=== PATIENT | female | born 1990 ===

== ENCOUNTER 2017-11-27 21:20 | Emergency (ER) | payer SELFPAY ==
[2017-11-27 21:48] VITALS: BP 116/81; PULSE 89; RESP 19; TEMP 97.8; O2SAT 100
--- NOTE | 2017-11-27 22:49 | ED PDOC ---
HPI: Abdomen Time Seen by Provider: 11/27/17 21:51 Chief Complaint (Nursing): Abdominal Pain Chief Complaint (Provider): lower abdominal pain History Per: Patient History/Exam Limitations: no limitations Onset/Duration Of Symptoms: Days (1 week), Gradual, Persistent Location Of Pain/Discomfort: Suprapubic Quality Of Discomfort: Dull, Aching Associated Symptoms: Urinary Symptoms (feels like she always has to go). denies : Fever, Chills, Nausea, Vomiting, Diarrhea, Loss Of Appetite, Back Pain Exacerbating Factors: None Alleviating Factors: None Additional Complaint(s): Has not taken anything for pain Last menses 2 months ago. Normally irregular No vaginal discharge or bleeding. PMD Dr Baum Past Medical History Reviewed: Historical Data, Nursing Documentation, Vital Signs Vital Signs: Last Vital Signs Temp 97.8 F 11/27/17 21:45 Pulse 89 11/28/17 02:39 Resp 19 11/28/17 02:39 BP 116/81 11/28/17 02:39 Pulse Ox 100 11/28/17 06:39 - Medical History PMH: No Chronic Diseases - Surgical History Surgical History: No Surg Hx - Family History Family History: States: No Known Family Hx - Social History Current smoker - smoking cessation education provided: No - Home Medications Home Medications: Ambulatory Orders Medication Instructions Recorded Naproxen [Naprosyn] 500 mg PO Q12 #14 tab 11/28/17 Nitrofurantoin Macrocrystals 100 mg PO BID #14 cap 11/28/17 [Macrobid] - Allergies Allergies/Adverse Reactions: Allergies Allergy/AdvReac Type Severity Reaction Status Date / Time blue cheese Allergy RASH Uncoded 11/27/17 21:45 cream cheese Allergy ANAPHYLAXIS Uncoded 11/27/17 21:45 pesto Allergy NAUSEA Uncoded 11/27/17 21:45 Review of Systems ROS Statement: Except As Marked, All Systems Reviewed And Found Negative (and as per HPI) Gastrointestinal: Positive for: Abdominal Pain Physical Exam - Reviewed Nursing Documentation Reviewed: Yes Vital Signs Reviewed: Yes - Physical Exam Appears: Positive for: Non-toxic, No Acute Distress Head Exam: Positive for: ATRAUMATIC, NORMOCEPHALIC Skin: Positive for: Warm, Dry Eye Exam: Positive for: EOMI, PERRL ENT: Negative for: Pharyngeal Erythema, Tonsillar Exudate Neck: Positive for: Painless ROM, Supple Cardiovascular/Chest: Positive for: Regular Rate, Rhythm, Chest Non Tender. Negative for: Murmur Respiratory: Positive for: Normal Breath Sounds. Negative for: Wheezing Gastrointestinal/Abdominal: Positive for: Soft, Tenderness (mild suprapubic ttp) . Negative for: Mass, Distended, Guarding, Rebound Back: Positive for: Normal Inspection. Negative for: Muscle Spasm Extremity: Positive for: Normal ROM. Negative for: Deformity Lymphatic: Negative for: Adenopathy Neurologic/Psych: Positive for: Alert. Negative for: Motor/Sensory Deficits - ECG O2 Sat by Pulse Oximetry: 100 Disposition - Clinical Impression Clinical Impression: Pelvic pain - Disposition Referrals: [facility] [Outside] [facility] [Outside] Disposition: Transfer of Care Disposition Time: 00:00 Condition: STABLE Prescriptions: Naproxen [Naprosyn] 500 mg PO Q12 #14 tab Nitrofurantoin Macrocrystals [Macrobid] 100 mg PO BID #14 cap Patient Signed Over To: Jamey Solis Handoff Comments: Pending US and ER disposition
[2017-11-27 23:45] LABS: SQUAMOUS EPITHIAL 1 /hpf (0-5); URINE BILIRUBIN NEGATIVE (NEGATIVE); URINE BLOOD NEGATIVE (NEGATIVE); URINE CLARITY SLIGHTY-CLOUDY (Clear); URINE COLOR YELLOW (YELLOW); URINE GLUCOSE (UA) NEG (Normal); URINE LEUKOCYTE ESTERASE TRACE Leu/uL (Negative); URINE PROTEIN NEGATIVE (NEGATIVE); URINE UROBILINOGEN 0.2-1.0 mg/dL (0.2-1.0)
--- NOTE | 2017-11-28 00:15 | ED PDOC ---
- ECG O2 Sat by Pulse Oximetry: 100 (RA) Pulse Ox Interpretation: Normal Medical Decision Making Medical Decision Making: Time: 1215 -- Patient endorsed to me by Dr. Martines, pending ultrasound and re- evaluation. Time: 014 US RESULTS FINDINGS: Uterus/cervix: No myometrial mass. Endometrium: 1.4 cm in thickness. Probable nabothian cysts. Right ovary: No mass. Small follicles. Normal flow. Left ovary: 1.3 x 1.2 x 1.1 cm anechoic lesion. Small follicles. Normal flow. Free fluid: Trace free fluid within pelvis. IMPRESSION: 1. LEFT ovarian dominant follicle/follicular cyst. 2. Incidental/non-acute findings are described above. Thank you for allowing us to participate in the care of your patient. Dictated and Authenticated by: Tristen Emerson MD 11/28/2017 1:40 AM Eastern Time ([place] & [place]) Time: 9 -- Patient reports improvement of symptoms. Provided will clinically discharge patient with a UTI based on symptoms and evaluations. 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 Diagnosis: Pelvic Pain, UTI - condition improved. Scribe Attestation: Documented by Mason Moura, acting as a scribe for Dr. Jamey Solis MD. Provider Scribe Attestation: All medical record entries made by the Scribe were at my direction and personally dictated by me. I have reviewed the chart and agree that the record accurately reflects my personal performance of the history, physical exam, medical decision making, and the department course for this patient. I have also personally directed, reviewed, and agree with the discharge instructions and disposition. Disposition - Clinical Impression Clinical Impression: Pelvic pain - POA Present On Arrival: None - Disposition Referrals: [facility] [Outside] [facility] [Outside] Disposition: Routine/Home Disposition Time: 02:30 Condition: STABLE Prescriptions: Naproxen [Naprosyn] 500 mg PO Q12 #14 tab Nitrofurantoin Macrocrystals [Macrobid] 100 mg PO BID #14 cap Instructions: Acute Pelvic Pain Forms: [facility] ([place])
--- NOTE | 2017-11-28 15:32 | US ---
HISTORY: pelvic pain COMPARISON: None available. TECHNIQUE: Transvaginal pelvic ultrasound was performed with longitudinal and transverse images submitted for interpretation. FINDINGS: UTERUS: Measures 7.4 x 4.5 x 3.8 cm. The uterus is anteverted, normal in size and appearance. No fibroid or other mass lesion seen. ENDOMETRIUM: Measures 13.8 mm in diameter. Trilaminar in appearance, appearing grossly nonfocal. CERVIX: Tiny nabothian cyst is identified posteriorly with the cervix otherwise unremarkable. . RIGHT OVARY: Measures 3.1 x 3.1 x 1.3 cm. No solid mass. Normal flow. Scattered follicles identified. LEFT OVARY: Measures 3.8 x 3.2 x 2.9 cm. No solid mass. Normal flow. Scattered follicles identified. FREE FLUID: No significant free fluid noted. OTHER FINDINGS: None. IMPRESSION: Unremarkable pelvic ultrasound. Concordant preliminary report from [facility], 11/28/2017.
== END 2017-11-28 02:15 | disposition home or self-care (01) ==
LOC: H.ER 21:20
DX: R10.2 Pelvic and perineal pain (principal); N39.0 Urinary tract infection, site not specified
CPT/HCPCS: 76830; 81003; 81025; 96372; 99283; J1885

== ENCOUNTER 2018-09-07 02:34 | Emergency (ER) | payer MEDICAID ==
[2018-09-07 03:05] VITALS: BMI 27.9
[2018-09-07 03:11] VITALS: O2SAT 100
--- NOTE | 2018-09-07 03:46 | ED PDOC ---
HPI: Headache Time Seen by Provider: 09/07/18 03:14 Chief Complaint (Nursing): Headache Chief Complaint (Provider): headache History Per: Patient History/Exam Limitations: no limitations Onset/Duration Of Symptoms: Days (4) Current Symptoms Are (Timing): Still Present Quality: Pressure Associated Symptoms: Photophobia Additional Complaint(s): 27 y/o female presents for evaluation of headache x 4 days. Patient reports "sinus pressure" and nasal drainage, for which she has been using Sudafed and Flonase. Patient states last night she developed frontal headache, which has improved after taking Excedrin. Patient admits to similar symptoms in past when she had a sinus infection. Denies fever, vision changes, neck pain/stiffness, nausea/vomiting, extremity numbness/weakness, throat pain, cough, chest pain, shortness of breath, palpitations, abdominal pain. Past Medical History Reviewed: Historical Data, Nursing Documentation, Vital Signs Vital Signs: Last Vital Signs Temp 98.7 F 09/07/18 03:05 Pulse 94 H 09/07/18 03:05 Resp 18 09/07/18 03:05 BP 112/73 09/07/18 03:05 Pulse Ox 100 09/07/18 03:05 - Medical History PMH: No Chronic Diseases - Surgical History Surgical History: No Surg Hx - Family History Family History: States: No Known Family Hx - Home Medications Home Medications: Ambulatory Orders Medication Instructions Recorded Naproxen [Naprosyn] 500 mg PO Q12 #14 tab 11/28/17 Nitrofurantoin Macrocrystals 100 mg PO BID #14 cap 11/28/17 [Macrobid] Amoxicillin/Clavulanate [Augmentin 1 tab PO Q12 #14 tab 09/07/18 875 MG-125 MG] - Allergies Allergies/Adverse Reactions: Allergies Allergy/AdvReac Type Severity Reaction Status Date / Time blue cheese Allergy RASH Uncoded 09/07/18 03:05 cream cheese Allergy ANAPHYLAXIS Uncoded 09/07/18 03:05 pesto Allergy NAUSEA Uncoded 09/07/18 03:05 Review of Systems ROS Statement: Except As Marked, All Systems Reviewed And Found Negative Neurological: Positive for: Headache Physical Exam - Reviewed Nursing Documentation Reviewed: Yes Vital Signs Reviewed: Yes - Physical Exam Appears: Positive for: Well, Non-toxic, No Acute Distress Head Exam: Positive for: ATRAUMATIC, NORMAL INSPECTION, NORMOCEPHALIC Skin: Positive for: Normal Color Eye Exam: Positive for: EOMI, PERRL ENT: Positive for: Sinus Pain/Drainage (bilateral ethmoid tenderness to palpation), Nasal Congestion. Negative for: Pharyngeal Erythema, Tonsillar Exudate, Tonsillar Swelling Cardiovascular/Chest: Positive for: Regular Rate, Rhythm Respiratory: Positive for: Normal Breath Sounds Gastrointestinal/Abdominal: Positive for: Normal Exam Back: Positive for: Normal Inspection Extremity: Positive for: Normal ROM Neurological/Psych: Positive for: Awake, Alert, Oriented (x3) - ECG O2 Sat by Pulse Oximetry: 100 - Progress ED Course And Treament: -upreg -Toradol IM Patient educated on findings, discharged with instructions to follow up with PMD within 2-3 days Advised to continue Sudafed, Flonase Rx Augmentin given, with instructions to wait and see if symptoms improve within 48 hours Return precautions given Disposition - Clinical Impression Clinical Impression: Sinusitis, Headache - Patient ED Disposition Is Patient to be Admitted: No Counseled Patient/Family Regarding: Diagnosis, Need For Followup, Rx Given - Disposition Disposition: Routine/Home Disposition Time: 04:45 Condition: IMPROVED Prescriptions: Amoxicillin/Clavulanate [Augmentin 875 MG-125 MG] 1 tab PO Q12 #14 tab Instructions: Sinusitis in Adults, Sinus Headache (DC) Forms: [facility] ([place])
[2018-09-07 06:57] VITALS: BP 115/74; PULSE 81; RESP 17; TEMP 98.3
== END 2018-09-07 06:50 | disposition home or self-care (01) ==
LOC: H.ER 02:34
DX: J32.9 Chronic sinusitis, unspecified (principal)
CPT/HCPCS: 81025; 96372; 99284; J1885